=== PATIENT | female | born 1945 ===

== ENCOUNTER 2020-03-06 07:37 | Outpatient (CLI) | payer OTHER ==
[~2020-03-06 07:37] MED LIST: COZAAR50 MG; DEPAKOTE ER500 MG; GLUCOPHAGE XR500 MG; SEROQUEL200 MG; SYNTHROID50 MCG; TEMAZEPAM30 MG
== END 2020-03-06 07:45 | disposition home or self-care (01) ==
LOC: TOM 07:37
PROVIDERS: ATTEND Internal Medicine Gastroenterology
DX: K56.690 Other partial intestinal obstruction (principal)